=== PATIENT | male | born 1965 | race Caucasian/White ===

== ENCOUNTER 2025-01-28 22:34 | Emergency (ER) | payer OTHER, SELFPAY ==
[2025-01-28] VITALS (8 sets, daily range): BP systolic 182–185; BP diastolic 95; PULSE 98–110; TEMP 36.6; O2SAT 94–97; BMI 37.7
--- NOTE | 2025-01-28 22:59 | ECG_ITS ---
[facility] Test Date: 2025-01-28 Pat Name: JORJE LAROSE Department: Room: - Gender: Male Warp Tension Tester: : 1965 Requested By: [id number] Order Number: [id number] Reading MD: DALI TORRES M.D. Measurements Intervals [place] Rate: 106 P: 53 SC: 140 QRS: 59 QRSD: 84 T: 240 QT: 330 QTc: 392 Interpretive Statements 1120 Sinus tachycardia [address] depression 4664 Twave abnormality, possible inferior ischemia 9150 abnormal ECG No previous ECG available for comparison Electronically Signed On 01-29-2025 7:23:28 EST by DALI TORERS M.D.
--- OUTSIDE RECORDS SUMMARY | 2025-01-28 23:12 | XMS_ITS | Clinical Summary ---
Author Organization [facility] tem Address [facility] [place] [id number] [address] 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 Phone Services, [facility] Primary Care Provider Social History Tobacco UseTypesPacks/DayYears UsedDateSmoking Tobacco: Never AssessedChildcare AnswerDate YtblreblEjsiqoxktXzrnnnj59/13/2019EmploymentAnswerDate Recorded HxmopqpebyAjsdwvj06/13/2019Purpose - LifeAnswerDate RecordedPurpose and direction in clcdMpogicy48/11/2021Sex and Gender InformationValueDate Recorded Sex Assigned at BirthNot on fileLegal NiuQhjk0504/13/2017 2:07 PM ESTGender IdentityNot on fileSexual OrientationNot on file Last Filed Vital Signs Vital SignReadingTime TakenCommentsBlood Pressure--Pulse--Temperature-- Respiratory Rate--Oxygen Saturation--Inhaled Oxygen Concentration--Qzxegf69.8 kg (220 lb)04/20/2017 12:58 PM TYCSvrqri988.6 cm (5' 4 )04/20/2017 12:58 PM ESTBody Mass Index37.76004/20/2017 12:58 PM EST Plan of Treatment Not on file Medical Devices Not on file Insurance Care Teams Team MemberRelationshipSpecialtyStart DateEnd Date Services, [facility] [address] [place], [place] [facility]04/20/17
--- NOTE | 2025-01-28 23:18 | PC.NURSE ---
Patient states he is diabetic and hasn't taken his medication, checked his sugar, or seen his doctor in 2 years. States over the past two weeks he has been swelling and having SOB. unable to sleep laying down due to SOB. denies any other health problems besides diabetes.
[2025-01-29] VITALS (10 sets, daily range): BP systolic 155–178; BP diastolic 89–99; PULSE 98–127; O2SAT 96–100
--- NOTE | 2025-01-29 00:04 | XR_ITS ---
The [address] [address] Patient Name: JORJE LAROSE MRN: [id number] date: 1965 Sex: M Assigned Patient Location: ER Current Patient Location: Accession/Order Number: [id number] Exam Date: 01/29/2025 00:55 Report Date: 01/29/2025 07:49 At the request of: JENNIFER KOCH MD Procedure: XR chest 2V PA AND LATERAL CHEST: CLINICAL HISTORY: Shortness of breath, extremity swelling and hypertension. COMPARISON: None There is increase in interstitial markings. Small pleural effusions are present with probable underlying basilar atelectasis. No pneumothorax is seen. The heart is borderline enlarged. The bony structures are osteopenic. There is slight dextroscoliotic curvature. XR/XR chest 2V IMPRESSION: FINDINGS SUGGESTING FAILURE WITH PLEURAL EFFUSIONS Impression dictated by: Luana Contreras M.D. 01/29/2025 7:49 AM Dictation Location: [place] [address] Electronically authenticated by: [id number] Y Date: 01/29/2025 07:49
--- NOTE | 2025-01-29 00:05 | ED_ITS ---
HPI - SOB/Dyspnea General Chief Complaint: Shortness of Breath/Dyspnea Stated Complaint: HIGH BLOOD PRESSURE, FLUID IN LUNGS Time Seen by Provider: 01/28/25 23:03 Source: patient Mode of arrival: walk-in History of Present Illness HPI Narrative: This 59-year-old male with a history of diabetes who has not been taking medications for several years presents for evaluation after being seen at urgent care today for shortness of breath. The patient states that the doctor there told him that he was going to have a stroke, he was in kidney failure, he had fluid in his lungs and the blood vessels in his eyes were going to explode. The patient he states that he went there because for the past several weeks he has been having exertional dyspnea and approximately 15 pound weight gain. He denies any change in his diet. He has pitting edema from his feet to his mid to upper thighs. He denies any antecedent chest pain dizziness or syncope. He is not having any chest pain at this time. He cannot lie flat to breathe. He states he has never been diagnosed with high blood pressure. He has been urinating normally. He does have some chemical carmen on his chest that he states are work-related. Related Data Home Medications ?Medication ?Instructions ?Recorded ?Confirmed aspirin 81 mg tablet 81 mg PO DAILY 01/28/2508/17 Allergies Allergy/AdvReac Type Severity Reaction Status Date / Time No Known Drug Allergies Allergy Verified 01/28/25 22:54 Review of Systems ROS Status of ROS 10 or more systems reviewed and unremark able except as noted in history and below PFSH PFSH Social History Little interest or pleasure in doing things: not at all Feeling down, depressed, or hopeless: not at all Exam Narrative Exam Narrative: Vital signs and Nursing Notes reviewed: Patient is afebrile, tachycardic with a pulse of 110 and blood pressure is elevated at 185/95, he is Hypoxic with pulse ox of 94% on room air General: Awake, alert, oriented, nontoxic overweight male, he is unable to lie flat on the stretcher due to orthopnea, speech is clear without conversational dyspnea HEENT: Normocephalic atraumatic, mucous membranes are moist and pink, eyes are clear, normal conjunctiva, vision is grossly intact, posterior pharynx is normal in appearance. Neck: Supple, no meningeal signs, no JVD Chest: Diffusely diminished breath sounds with scattered expiratory wheezing, no rhonchi or rales appreciated, no accessory muscle use, patient is speaking in complete sentences although he is unable to lie down due to orthopnea CVS: Regular rate and rhythm S1-S2, tachycardic at 110 no murmurs rubs or gallops, pulses are brisk and equal bilaterally ABD: Soft, nondistended, nontender, no rebound guarding or rigidity, bowel sounds are normal, no pulsatile masses appreciated Extremities: 3+ pitting edema to the patient's feet and legs to the mid thighs Skin: Chemical burn on the patient's arms and chest-states this is work-related from a solvent they use at his job Neuro: No focal deficits Constitutional Vital Signs, click to edit/add: Last Vital Signs Temp 98 F 01/28/25 22:51 Pulse 108 H 01/29/25 01:09 Resp 20 01/29/25 01:09 BP 178/99 H 01/29/25 01:09 Pulse Ox 96 01/29/25 01:09 O2 Del Method Room Air 01/29/25 01:09 Course Vital Signs Vital signs: Vital Signs Temperature 98 F 01/28/25 22:51 Pulse Rate 110 H 01/28/25 22:51 Respiratory Rate 19 01/28/25 22:51 Blood Pressure 185/95 H 01/28/25 22:51 Pulse Oximetry 94 L 01/28/25 22:51 Oxygen Delivery Method Room Air 01/28/25 22:51 Temperature 98 F 01/28/25 22:51 Pulse Rate 108 H 01/29/25 01:09 Respiratory Rate 20 01/29/25 01:09 Blood Pressure 178/99 H 01/29/25 01:09 Pulse Oximetry 96 01/29/25 01:09 Oxygen Delivery Method Room Air 01/29/25 01:09 MDM - SOB/Dyspnea MDM Narrative Medical decision making narrative: 59-year-old male, smoker, presents for evaluation of shortness of breath with exertional dyspnea and lower extremity swelling which has been increasing over the course of the past 2 weeks. He went to urgent care earlier today due to his shortness of breath and was told that his blood pressure was high, he had fluid in his lungs, his kidneys were failing and the blood vessels in his eyeballs were going to rupture. He was referred to the emergency department. He is not having any chest pain and has not had any chest pain. He states he has gained at least 15 pounds over the past several weeks. He has pitting edema from his feet to his mid thighs. His lungs have diminished breath sounds with expiratory wheezing. He was given a DuoNeb treatment for the wheezing. EKG done upon arrival with a sinus tachycardia at 106 bpm. There is a normal axis and nonspecific ST changes. Cardiac workup was ordered. His white count is minimally elevated 12.4 with a stable hemoglobin of 13.5. Glucose is elevated at 206 and the remainder of his electrolytes and liver function tests are normal. Troponin is 109 and delta troponin is 102. BNP is elevated at 1981. He was given 20 mg of IV Lasix for the fluid overload. Two-view chest x-ray shows pulmonary vascular congestion and pleural effusions. Pressure has remained moderately high in the 170s to 180s and he was medicated with 50 mg of oral Lopressor. The results of all of his studies were discussed with him. I intended to admit him for diuresis, blood pressure management and possibly cardiology evaluation but he declines admission. I explained to him that he has fluid in his lungs that is putting a strain on his heart and he is elevated troponins which indicate some degree of heart strain versus recovery from a heart attack. He verbalizes understanding of this and states he still cannot stay or admission because he has a dog at home that he cannot leave by herself. He states that he will try to find somebody to take care of his dog and return to the emergency department. He signed out AGAINST MEDICAL ADVICE verbalizing understanding of the risks of untreated cardiac disease, worsening pulmonary status with respiratory distress and failure, heart attack, stroke, permanent disability and . He does not have a local family physician and was prescribed Lasix and Toprol at the time of discharge. He will be referred to local family medicine and cardiology. Lab Data Attestation: I reviewed the patient's lab results. Labs: Lab Results 01/28/25 01/29/25 Range/Units 23:14 01:10 WBC 12.4 H (4.0-11.0) 10^3/uL RBC 4.51 L (4.70-6.10) 10^6/uL Hgb 13.5 L (14.0-18.0) g/dL Hct 40.3 L (42.0-54.0) % MCV 89.4 (80.0-94.0) fL MCH 29.9 (25.9-34.0) pg MCHC 33.5 (29.9-35.2) g/dL RDW 12.2 (11.0-15.0) % Plt Count 297 (150-450) 10^3/uL MPV 10.8 (9.5-13.5) fL Neut % (Auto) 65.6 (43.0-75.0) % Lymph % (Auto) 23.4 (20.5-60.0) % Benzie % (Auto) 6.5 (1.7-12.0) % Eos % (Auto) 3.4 (0.9-7.0) % Baso % (Auto) 0.8 (0.2-2.0) % Neut # (Auto) 8.1 H (1.4-6.5) 10^3/uL Lymph # (Auto) 2.9 (1.2-3.8) 10^3/uL Benzie # (Auto) 0.8 (0.3-0.8) 10^3/uL Eos # (Auto) 0.4 (0.0-0.7) 10^3/uL Baso # (Auto) 0.1 (0.0-0.1) 10^3/uL Abs Immat Gran (auto) 0.04 H (0.00-0.03) 10^3/uL Imm/Tot Granulo (auto) 0.3 (0.0-0.5) % Sodium 145 (136-145) mmol/L Potassium 3.9 (3.5-5.1) mmol/L Chloride 109 H (98-107) mmol/L Carbon Dioxide 28.2 (21.0-32.0) mmol/L Anion Gap 11.7 BUN 24.0 H (7.0-18.0) mg/dL Creatinine 0.94 (0.70-1.30) mg/dL Est GFR ( Amer) >60 (>=60 mL/min/1.73m^2) Est GFR (Non-Af Amer) >60 (>=60 mL/min/1.73m^2) BUN/Creatinine Ratio 25.5 Glucose 206 H (74-106) mg/dL Calcium 8.1 L (8.5-10.1) mg/dL Total Bilirubin 0.3 (0.2-1.0) mg/dL AST 28 (15-37) U/L ALT 50 (16-63) U/L Alkaline Phosphatase 103 (46-116) U/L Troponin I High Sens 109.9 H* 102.5 H* (4.0-76.1) pg/mL NT-Pro-B Natriuret Pep 1981.0 H* (<=900.0) pg/mL Total Protein 6.4 (6.4-8.2) g/dL Albumin 2.7 L (3.4-5.0) g/dL Globulin 3.7 g/dL Albumin/Globulin Ratio 0.7 ECG Data Attestation: I personally reviewed and interpreted this ECG as follows: (Sinus tachycardia at 106 bpm, normal axis, Q-wave in lead III, nonspecific ST changes, no acute ST segment elevation or T wave inversion) Discharge Plan Discharge Stand Alone Forms: Portal Instructions Chief Complaint: Shortness of Breath/Dyspnea Clinical Impression: Congestive heart failure, Pleural effusion, Elevated troponin Patient Disposition: Left Against Medical Advice Time of Disposition Decision: 02:12 Condition: Good Prescriptions / Home Meds: No Action aspirin 81 mg tablet 81 mg PO DAILY Print Language: Armenian Instructions: Heart Failure (ED), Heart Healthy Diet (ED), Pleural Effusion (DC), High Troponin Levels (ED) Referrals: DALI TORRES [Physician, Cardiology] - 1 week Cynthia Trejo DO [Physician, Hospitalist] - 1 week Physician,Non-Staff, MD [Primary Care Provider] - 1 week
[2025-01-29 00:11] LABS: Hematocrit 40.3 % (42.0-54.0); Hemoglobin 13.5 g/dL (14.0-18.0); Immature Granulocytes Abs Auto 0.04 10^3/uL (0.00-0.03); Immature Granulocytes Pct Auto 0.3 % (0.0-0.5); Lymphocytes Absolute Auto 2.9 10^3/uL (1.2-3.8); Mean Corpuscular HGB Conc 33.5 g/dL (29.9-35.2); Mean Corpuscular Hemoglobin 29.9 pg (25.9-34.0); Mean Corpuscular Volume 89.4 fL (80.0-94.0); Platelet Count 297 10^3/uL (150-450); Red Blood Count 4.51 10^6/uL (4.70-6.10); White Blood Count 12.4 10^3/uL (4.0-11.0)
[2025-01-29 00:26] LABS: Alanine Aminotransferase 50 U/L (16-63); Albumin Globulin Ratio 0.7; Albumin Level 2.7 g/dL (3.4-5.0); Alkaline Phosphatase 103 U/L (46-116); Anion Gap 11.7; Aspartate Amino Transferase 28 U/L (15-37); Blood Urea Nitrogen 24.0 mg/dL (7.0-18.0); Calcium 8.1 mg/dL (8.5-10.1); Carbon Dioxide 28.2 mmol/L (21.0-32.0); Chloride 109 mmol/L (98-107); Estimated GFR (African America >60 (>=60 mL/min/1.73m^2); Estimated GFR (Non-African Ame >60 (>=60 mL/min/1.73m^2); Globulin 3.7 g/dL; Glucose 206 mg/dL (74-106); Potassium 3.9 mmol/L (3.5-5.1); Sodium 145 mmol/L (136-145); Total Protein 6.4 g/dL (6.4-8.2)
[2025-01-29] MEDS: IPRATROPIUM/ALBUTEROL SULFATE 3 ML AMPUL.NEB IH (00:27)
[2025-01-29 00:34] LABS: NT Pro B Type Natriuretic Pept 1981.0 pg/mL (<=900.0)
[2025-01-29] MEDS: FUROSEMIDE 20 MG/2 ML VIAL IVP (00:42)
[2025-01-29] MEDS: METOPROLOL TARTRATE 50 MG TABLET PO (02:30)
== END 2025-01-29 02:41 | disposition left against medical advice (07) ==
PROVIDERS: Emergency Provider Emergency Medicine
DX: I50.9 Heart failure, unspecified (principal); Z53.29 Procedure and treatment not carried out because of patient's decision for other reasons; R06.02 Shortness of breath; R79.89 Other specified abnormal findings of blood chemistry; E11.9 Type 2 diabetes mellitus without complications; T50.996A Underdosing of other drugs, medicaments and biological substances, initial encounter; Z91.128 Patient's intentional underdosing of medication regimen for other reason; F17.200 Nicotine dependence, unspecified, uncomplicated
CPT/HCPCS: 36415; 71046; 80053; 83880; 84484; 85025; 93005; 94640; 96374; 99285; J1938